=== PATIENT | female | born 1960 | race Two or more races ===

== ENCOUNTER 2021-11-24 19:24 | Emergency (ER) | payer BC ==
[~2021-11-24] VITALS: Ht 157.5 cm; Wt 68.0 kg
[2021-11-24] MEDS ORDERED: CLONIDINE HCL 0.1 MG TABLET PO ONE (21:00)
[2021-11-24] MEDS ORDERED: MECLIZINE HCL 25 MG TABLET PO ONE (21:00)
[2021-11-24 21:23] LABS: HEMATOCRIT 38.6 % (31.2-41.9); MEAN CORPUSCULAR HEMOGLOBIN 31.2 uug (24.7-32.8); MEAN CORPUSCULAR VOLUME 89.2 fL (75.5-95.3); PLATELET COUNT (AUTO) 241 K/uL (179-408)
[2021-11-24 21:32] LABS: POTASSIUM 3.6 mmol/L (3.5-5.1)
[2021-11-24] MEDS ORDERED: CLONIDINE HCL 0.1 MG TABLET ONE (21:35)
[2021-11-24] MEDS ORDERED: MECLIZINE HCL 25 MG TABLET ONE (21:35)
[2021-11-24 21:39] LABS: BILIRUBIN,DIRECT 0.1 mg/dL (0.0-0.2); BILIRUBIN,TOTAL 0.3 mg/dL (0.2-1.0); TOTAL PROTEIN, SERUM 7.7 g/dL (6.4-8.2)
[2021-11-24] MEDS ORDERED: MECL-159 PO (22:29)
[2021-11-24] MEDS ORDERED: CLON0.1T PO (22:29)
--- NOTE | 2021-11-24 22:38 | NUR ---
Patient discharged to home in stable condition w/daughter. Written and verbal after care instructions given. Patient verbalizes understanding of instructions. Stressed follow up or return to ER for worsening s/s.
[2021-11-24 22:39] VITALS: BP 138/68
== END 2021-11-24 22:40 | disposition home or self-care (01) ==
LOC: ER 21:50
DX: R42 Dizziness and giddiness (principal); I10 Essential (primary) hypertension; Z79.899 Other long term (current) drug therapy; R94.31 Abnormal electrocardiogram [ECG] [EKG]
CPT/HCPCS: 36415; 70030-TC; 83735; 85025; 93005; A4663; J8597